=== PATIENT | female | born 1995 | race Caucasian/White ===

== ENCOUNTER 2021-05-27 00:05 | Inpatient (IN) | payer OTHER ==
[~2021-05-27] VITALS: Ht 160 cm; Wt 66.2 kg
[~2021-05-27 00:05] MED LIST: IRON325 M1 PO; PRENATAL MULTI1 EAC4 PO
[2021-05-27 00:54] LABS: HCT 37.8 % (37.0-47.0); HGB 12.6 g/dl (12.5-16.0); MCHC 33.3 g/dL (32.0-36.0); MCV 95.9 fL (78.0-100.0); MPV 12.1 fL (6.0-9.5); RBC 3.94 M/uL (4.20-5.40); RDW 12.2 % (11.5-14.0); WBC 10.2 K/uL (4.0-10.5)
[2021-05-27 00:55] LABS: BILIRUBIN NEGATIVE (NEGATIVE); BLOOD NEGATIVE Ery/uL (NEGATIVE); CLARITY CLEAR (CLEAR); COLOR YELLOW (YELLOW); GLUCOSE (U) NORMAL (NORMAL); LEUKOCYTES TRACE Leu/uL (NEGATIVE); NITRITE NEGATIVE (NEGATIVE); PROTEIN NEGATIVE (NEGATIVE); UROBILINOGEN 0.2 mg/dL (0.2-1.0); pH 6.5 (5.0-9.0)
[2021-05-27 01:07] LABS: AMORPHOUS URATES CRYSTALS TRACE; BACTERIA 1+
[2021-05-28 07:08] LABS: HCT 35.1 % (37.0-47.0); HGB 11.8 g/dL (12.5-16.0)
== END 2021-05-29 10:14 | disposition home or self-care (01) | DRG 807 ==
LOC: FOB 00:05
PROVIDERS: ADMIT Obstetrics & Gynecology
PROC: 10E0XZZ Delivery of Products of Conception, External Approach (ICD-10-PCS; principal; 2021-05-27)
PROC: 0HQ9XZZ Repair Perineum Skin, External Approach (ICD-10-PCS; 2021-05-27)
PROC: 3E0P7VZ Introduction of Hormone into Female Reproductive, Via Natural or Artificial Opening (ICD-10-PCS; 2021-05-27)
PROC: 3E033VJ Introduction of Other Hormone into Peripheral Vein, Percutaneous Approach (ICD-10-PCS; 2021-05-27)
PROC: 10907ZC Drainage of Amniotic Fluid, Therapeutic from Products of Conception, Via Natural or Artificial Opening (ICD-10-PCS; 2021-05-27)
DX: O99.814 Abnormal glucose complicating childbirth (principal); Z37.0 Single live birth; Z20.822 Contact with and (suspected) exposure to COVID-19; Z3A.39 39 weeks gestation of pregnancy; Z90.49 Acquired absence of other specified parts of digestive tract; O69.81X0 Labor and delivery complicated by cord around neck, without compression, not applicable or unspecified; O70.0 First degree perineal laceration during delivery
CPT/HCPCS: 36415; 81001; 85014; 85018; 90686; J7120; U0002

== ENCOUNTER → 2021-10-08 | Day surgery (SDC) | payer OTHER ==
[~2021-10-08] VITALS: Ht 157.5 cm; Wt 56.7 kg
[2021-10-08 07:27] LABS: HCG (URINE) SCREEN NEGATIVE (NEGATIVE)
== END | disposition home or self-care (01) ==
LOC: FAS 06:31
PROVIDERS: Anesthesiology
DX: K29.50 Unspecified chronic gastritis without bleeding (principal); D13.1 Benign neoplasm of stomach; K20.90 Esophagitis, unspecified without bleeding; Z90.49 Acquired absence of other specified parts of digestive tract; Z97.5 Presence of (intrauterine) contraceptive device
CPT/HCPCS: 84703; J2704; J7120